=== PATIENT | male | born 1965 | race Caucasian/White ===

== ENCOUNTER 2018-11-26 15:21 | Emergency (ER) | payer BC, OTHER ==
[~2018-11-26] VITALS: Ht 172.7 cm; Wt 68.0 kg
--- NOTE | 2018-11-26 15:40 | NUR ---
JOHN VILLAVICENCIO AT BEDSIDE FOR MSE.
[2018-11-26] MEDS ORDERED: PHENAZOPYRIDINE HCL 100 MG TABLET ONE (15:43)
[2018-11-26] MEDS ORDERED: PHENAZOPYRIDINE HCL 100 MG TABLET PO ONE (15:45)
[2018-11-26 15:50] LABS: *BILIRUBIN,URIN NEGATIVE (NEGATIVE); *CLARITY,URINE SLIGHTLY CLOUDY (CLEAR); *COLOR,URINE YELLOW (YELLOW); *KETONES,URINE NEGATIVE (NEGATIVE); *UROBILINOGEN,URINE 0.2 E.U./dl (NORMAL); LEUKOCYTE ESTERASE ,URINE 3+ (NEGATIVE); NITRITE, URINE NEGATIVE (NEGATIVE); UGLUCOSE NEGATIVE (NEGATIVE)
[2018-11-26 15:53] LABS: *BLOOD, URINE TRACE (NEGATIVE)
[2018-11-26 16:13] LABS: BACTERIA,URINE FEW /HPF (NONE SEEN); RBC,URINE 0-3 /HPF (0-3); WBC,URINE 20-50 /HPF (0-3)
[2018-11-26 16:14] LABS: SQUAMOUS EPITHELIAL CELL,UR NONE SEEN /HPF (NONE SEEN)
--- NOTE | 2018-11-26 16:16 | NUR ---
JOHN VILLAVICENCIO AT BEDSIDE FOR PT UPDATE.
[2018-11-26] MEDS ORDERED: CEphaleXIN 500 MG CAPSULE ONE (16:22)
--- NOTE | 2018-11-26 16:23 | NUR ---
Patient discharged to home in stable conditon. Written and verbal after care instructions given. Patient verbalizes understanding of instructions. ALL BELONGINGS W/ PT. PT SELF-AMBULATED W/O DIFFICULTY.
[2018-11-26 16:24] VITALS: BP 152/86
[2018-11-26] MEDS ORDERED: CEphaleXIN 500 MG CAPSULE PO ONE (16:30)
== END 2018-11-26 16:25 | disposition home or self-care (01) ==
LOC: ER 15:21
DX: N39.0 Urinary tract infection, site not specified (principal); F17.200 Nicotine dependence, unspecified, uncomplicated; Z90.49 Acquired absence of other specified parts of digestive tract
CPT/HCPCS: 87077; 87086; A4663

== ENCOUNTER 2019-05-17 13:55 | Emergency (ER) | payer BC, OTHER ==
[~2019-05-17] VITALS: Ht 170.2 cm; Wt 72.6 kg
[2019-05-17] MEDS ORDERED: IV NORMAL SALINE 1000 ML BAG IV ONE ×2 (14:30→16:15)
[2019-05-17] MEDS ORDERED: ONDANSETRON 4 MG/2 ML VIAL IV ONE (14:30)
[2019-05-17] MEDS ORDERED: ONDANSETRON 4 MG/2 ML VIAL ONE (14:33)
[2019-05-17 14:36] LABS: BASOPHILS # (AUTO) 0.1 K/uL (0.0-8.0); BASOPHILS % (AUTO) 0.8 % (0.0-2.0); EOSINOPHILS # (AUTO) 0.1 K/uL (0.0-0.7); EOSINOPHILS % (AUTO) 1.7 % (0.0-7.0); HEMATOCRIT 48.9 % (36.7-47.1); HEMOGLOBIN 15.9 g/dL (12.5-16.3); LYMPHOCYTES # (AUTO) 1.8 K/uL (20.0-40.0); LYMPHOCYTES % (AUTO) 24.7 % (20.5-51.5); MEAN CORPUSCULAR HEMOGLOBIN 27.1 uug (23.8-33.4); MEAN CORPUSCULAR HGB CONC 33 g/dL (32.5-36.3); MEAN CORPUSCULAR VOLUME 83.5 fL (73.0-96.2); MONOCYTES # (AUTO) 0.6 K/uL (2.0-10.0); MONOCYTES % (AUTO) 7.7 % (0.0-11.0); NEUTROPHILS # (AUTO) 4.8 K/uL (1.8-8.9); NEUTROPHILS % (AUTO) 65.1 % (38.5-71.5); PLATELET COUNT (AUTO) 296 K/uL (152-348); RED BLOOD CELL COUNT(AUTO) 5.86 MIL/uL (4.06-5.63); WHITE BLOOD COUNT (AUTO) 7.3 K/uL (3.6-10.2)
--- NOTE | 2019-05-17 14:38 | NUR ---
PT IS IN ROOM #1B. DR MILES EVALUATED THE PT.
[2019-05-17 14:46] LABS: CREATININE 1.4 mg/dL (0.6-1.3); POTASSIUM 2.9 mmol/L (3.5-5.1)
[2019-05-17 14:52] LABS: BILIRUBIN,DIRECT 0.1 mg/dL (0.0-0.2); BILIRUBIN,TOTAL 0.4 mg/dL (0.2-1.0); TOTAL PROTEIN, SERUM 7.9 g/dL (6.4-8.2)
[2019-05-17] MEDS ORDERED: POTASSIUM CHLORIDE 50 ML IV SCH (15:00)
[2019-05-17] MEDS ORDERED: POTASSIUM CHLORIDE 50 ML ONE (15:08)
[2019-05-17] MEDS ORDERED: POTASSIUM CHLORIDE 20 MEQ TAB.PRT.SR ONE (16:13)
[2019-05-17] MEDS ORDERED: POTASSIUM CHLORIDE 20 MEQ TAB.PRT.SR PO ONE (16:15)
[2019-05-17 16:25] LABS: *BILIRUBIN,URIN NEGATIVE (NEGATIVE); *CLARITY,URINE CLEAR (CLEAR); *COLOR,URINE YELLOW (YELLOW); *KETONES,URINE NEGATIVE (NEGATIVE); *UROBILINOGEN,URINE 0.2 E.U./dl (NORMAL); LEUKOCYTE ESTERASE ,URINE TRACE (NEGATIVE); NITRITE, URINE NEGATIVE (NEGATIVE); UGLUCOSE NEGATIVE (NEGATIVE)
[2019-05-17 16:32] LABS: *BLOOD, URINE TRACE (NEGATIVE)
[2019-05-17 16:33] LABS: MUCUS,URINE FEW /LPF (0-FEW); RBC,URINE 0-3 /HPF (0-3)
--- NOTE | 2019-05-17 17:55 | NUR ---
PT WAS D/C'd TO HOME. D/C INSTRUCTIONS GIVEN TO THE PT BY DR MILES.
[2019-05-17 18:03] VITALS: BP 142/81
== END 2019-05-17 18:04 | disposition home or self-care (01) ==
LOC: ER 13:58
DX: E87.6 Hypokalemia (principal); E86.0 Dehydration; F17.200 Nicotine dependence, unspecified, uncomplicated; Z90.49 Acquired absence of other specified parts of digestive tract
CPT/HCPCS: 36415; 74176; 80048; 80076; 81000; 81001; 83690; 85025; 87086; 93005; 96365; 96375; 99284; J2405; J3480; A4663; J7030

== ENCOUNTER 2019-08-05 11:09 | Emergency (ER) | payer BC, OTHER ==
[~2019-08-05] VITALS: Ht 177.8 cm; Wt 81.6 kg
[2019-08-05 12:38] LABS: BASOPHILS # (AUTO) 0.1 K/uL (0.0-8.0); BASOPHILS % (AUTO) 0.7 % (0.0-2.0); EOSINOPHILS # (AUTO) 0.2 K/uL (0.0-0.7); HEMATOCRIT 43.7 % (36.7-47.1); HEMOGLOBIN 14.2 g/dL (12.5-16.3); LYMPHOCYTES % (AUTO) 28.5 % (20.5-51.5); MEAN CORPUSCULAR HEMOGLOBIN 27.9 uug (23.8-33.4); MEAN CORPUSCULAR HGB CONC 33 g/dL (32.5-36.3); MEAN CORPUSCULAR VOLUME 85.8 fL (73.0-96.2); MONOCYTES # (AUTO) 0.4 K/uL (2.0-10.0); MONOCYTES % (AUTO) 5.3 % (0.0-11.0); NEUTROPHILS # (AUTO) 4.4 K/uL (1.8-8.9); NEUTROPHILS % (AUTO) 62.5 % (38.5-71.5); PLATELET COUNT (AUTO) 295 K/uL (152-348); RED BLOOD CELL COUNT(AUTO) 5.09 MIL/uL (4.06-5.63)
[2019-08-05 12:45] LABS: CREATININE 1.2 mg/dL (0.6-1.3); POTASSIUM 3.4 mmol/L (3.5-5.1)
[2019-08-05 12:51] LABS: BILIRUBIN,DIRECT 0.1 mg/dL (0.0-0.2); BILIRUBIN,TOTAL 0.4 mg/dL (0.2-1.0); TOTAL PROTEIN, SERUM 7.2 g/dL (6.4-8.2)
--- NOTE | 2019-08-05 13:36 | NUR ---
Patient discharged to home in stable conditon. Written and verbal after care instructions given. Patient verbalizes understanding of instructions.pt walks i nsteady gait. pt says feels better.
[2019-08-05 13:37] VITALS: BP 149/98
== END 2019-08-05 13:38 | disposition home or self-care (01) ==
LOC: ER 11:09
DX: R51 Headache (principal); F17.200 Nicotine dependence, unspecified, uncomplicated; Z90.49 Acquired absence of other specified parts of digestive tract
CPT/HCPCS: 36415; 70450; 85025; A4663

== ENCOUNTER 2024-04-05 14:55 | Emergency (ER) | payer BC, OTHER ==
[~2024-04-05] VITALS: Ht 170.2 cm; Wt 79.4 kg
[2024-04-05] MEDS ORDERED: LOSA1TAB39 PO (15:21)
[2024-04-05 15:48] LABS: BASOPHILS # (AUTO) 0.1 K/UL (0.0-0.2); BASOPHILS % (AUTO) 1.1 % (0.0-2.0); EOSINOPHILS # (AUTO) 0.2 K/uL (0.0-0.7); EOSINOPHILS % (AUTO) 3.3 % (0.0-7.0); HEMATOCRIT 40.6 % (36.7-47.1); HEMOGLOBIN 13.6 g/dL (12.5-16.3); LYMPHOCYTES # (AUTO) 1.6 K/uL (0.8-4.8); LYMPHOCYTES % (AUTO) 26.6 % (20.5-51.5); MEAN CORPUSCULAR HEMOGLOBIN 29.1 uug (23.8-33.4); MEAN CORPUSCULAR HGB CONC 34 g/dL (32.5-36.3); MEAN CORPUSCULAR VOLUME 86.8 fL (73.0-96.2); MONOCYTES # (AUTO) 0.4 K/uL (0.1-1.30); NEUTROPHILS # (AUTO) 3.8 K/uL (1.8-8.9); PLATELET COUNT (AUTO) 300 K/uL (152-348); RED BLOOD CELL COUNT(AUTO) 4.68 MIL/uL (4.06-5.63); RED CELL DISTRIBUTION WIDTH 12.9 % (12.1-16.2); WHITE BLOOD COUNT (AUTO) 6.1 K/uL (3.6-10.2)
[2024-04-05 15:49] LABS: DIFFERENTIAL COMMENT 1
[2024-04-05 16:08] LABS: ALANINE AMINOTRANSFERASE 35 U/L (16-63); ALBUMIN 3.6 g/dL (3.4-5.0); ALKALINE PHOSPHATASE 63 U/L (50-136); BILIRUBIN,DIRECT 0.1 mg/dL (0.0-0.2); BILIRUBIN,TOTAL 0.4 mg/dL (0.2-1.0); CALCIUM 8.4 mg/dL (8.5-10.1); CARBON DIOXIDE 28 mmol/L (21-32); CHLORIDE 104 mmol/L (98-107); CREATININE 1.3 mg/dL (0.6-1.3); GLUCOSE 141 mg/dL (74-106); NT-PRO BNP 81 pg/mL (0-125); SODIUM SERUM 139 mmol/L (136-145); TOTAL PROTEIN, SERUM 7.1 g/dL (6.4-8.2); UREA NITROGEN, BLOOD 16 mg/dL (7-18)
[2024-04-05 16:12] LABS: POTASSIUM 2.5 mmol/L (3.5-5.1)
[2024-04-05 16:59] LABS: *BILIRUBIN,URIN NEGATIVE (NEGATIVE); *BLOOD, URINE NEGATIVE (NEGATIVE); *CLARITY,URINE CLEAR (CLEAR); *COLOR,URINE YELLOW (YELLOW); *KETONES,URINE NEGATIVE (NEGATIVE); *PROTEIN,URINE NEGATIVE (NEGATIVE); *UROBILINOGEN,URINE 0.2 E.U./dl (NORMAL); LEUKOCYTE ESTERASE ,URINE NEGATIVE (NEGATIVE); NITRITE, URINE NEGATIVE (NEGATIVE); PH,URINE 6.5 (5.0-8.0); UGLUCOSE NEGATIVE (NEGATIVE)
[2024-04-05 17:10] LABS: ASPARTATE AMINOTRANSFERASE 18 U/L (15-37)
[2024-04-05] MEDS ORDERED: AZIT500T PO (17:30)
[2024-04-05] MEDS ORDERED: PRED50TA PO (17:30)
[2024-04-05] MEDS ORDERED: AZITHROMYCIN 250 MG TABLET ONE (17:31)
[2024-04-05] MEDS ORDERED: POTASSIUM CHLORIDE 20 MEQ TAB.PRT.SR ONE (17:32)
[2024-04-05] MEDS ORDERED: ONDANSETRON HCL 4 MG TABLET ONE (17:32)
[2024-04-05] MEDS: POTASSIUM CHLORIDE 20 MEQ TAB.PRT.SR PO ONE (17:33)
[2024-04-05] MEDS: AZITHROMYCIN 250 MG TABLET PO ONE (17:34)
[2024-04-05] MEDS: ONDANSETRON ODT 4 MG TAB.RAPDIS SL ONE (17:34)
[2024-04-05 17:42] VITALS: BP 122/80; O2SAT 96
== END 2024-04-05 17:43 | disposition home or self-care (01) ==
LOC: ER 14:55
DX: J18.9 Pneumonia, unspecified organism (principal); I10 Essential (primary) hypertension; F17.290 Nicotine dependence, other tobacco product, uncomplicated; Z90.49 Acquired absence of other specified parts of digestive tract; Z79.899 Other long term (current) drug therapy
CPT/HCPCS: 36415; 71045; 84484; 85025; 85730; A4606; A4663; Q0144; Q0162